=== PATIENT | female | born 1955 | race Caucasian/White ===

== ENCOUNTER → 2019-08-28 13:59 | Outpatient (CLI) | payer OTHER, SELFPAY ==
--- NOTE | ~2019-08-28 | MMUS_ITS ---
EXAMINATION: MM diagnostic juany BI w cb, US breast BI limited HISTORY: Palpable subareolar lump of the right breast and two palpable lumps in the upper outer quadr ant of the left breast. TECHNIQUE: Craniocaudal, mediolateral, and mediolateral oblique 3-D tomosynthesis images of the breas ts were performed and synthetic 2-D images were generated. CAD analysis was submitted and interpreted . High resolution limited bilateral breast ultrasound was performed. COMPARISON: 02/09/2018, 02/08/2017, 02/18/2016, 05/28/2015, 04/12/2015 BREAST PARENCHYMAL COMPOSITION: There are scattered areas of fibroglandular density. FINDINGS: MAMMOGRAPHIC FINDINGS: There is no evidence of suspicious mass, calcification, or architectural distortion in either breast to suggest malignancy. There has been no suspicious interval change. No mammographic correlate is i dentified for the reported palpable lumps of the breasts. ULTRASOUND: A small area of subareolar shadowing in the right breast corresponds to a chronic oil cyst. No suspic ious cystic or solid mass is identified in the region of the reported palpable lumps of either breast . IMPRESSION: 1. No specific mammographic or sonographic correlate is identified for the reported palpable abnormal ity of concern in either breast. 2. Further evaluation at this time should be based on clinical assessment. Continued follow-up physic al examination and annual screening mammography are recommended. BI-RADS Category 2: Benign finding(s). Reviewed, dictated and finalized at location A. LE PRESS OPERATOR IMPRESSION: 1. No specific mammographic or sonographic correlate is identified for the repo rted palpable abnormality of concern in either breast. 2. Further evaluation at this time should be based on clinical assessment. Cont inued follow-up physical examination and annual screening mammography are recom mended. BI-RADS Category 2: Benign finding(s).
== END ==
PROVIDERS: PCP Physician Assistant; Visit Provider Physician Assistant
DX: R92.8 Other abnormal and inconclusive findings on diagnostic imaging of breast (principal)
CPT/HCPCS: 76642; 77062; 77066; G0279

== ENCOUNTER → 2020-03-04 12:37 | Outpatient (CLI) | payer MEDICARE, OTHER, SELFPAY ==
--- NOTE | ~2020-03-04 | US_ITS ---
EXAMINATION: US thyroid DATE: 03/04/2020 12:52 INDICATION: Dysphagia, unspecified. Hypothyroidism. TECHNIQUE: Multiple ultrasound images of the thyroid were obtained. COMPARISON: None. FINDINGS: The right thyroid lobe measures 4.1 x 1.6 x 1.2 cm. The left thyroid lobe measures 3.5 x 1.0 x 1.0 c m. The thyroid demonstrates coarsened echotexture. Vascularity is normal. IMPRESSION: 1. No thyroid nodule. Reviewed, dictated and finalized at location B. IMPRESSION: 1. No thyroid nodule.
== END ==
PROVIDERS: PCP Physician Assistant; Visit Provider Physician Assistant
DX: R13.10 Dysphagia, unspecified (principal)
CPT/HCPCS: 76536

== ENCOUNTER 2020-09-26 17:32 | Emergency (ER) | payer OTHER, MEDICARE, SELFPAY ==
--- NOTE | ~2020-09-26 | CT_ITS ---
EXAMINATION: CT chest abdomen pelvis w con DATE: 09/26/2020 19:26 INDICATION: Chest and lower abdominal pain TECHNIQUE: Transaxial computed tomographic images of the chest, abdomen, and pelvis were obtained aft er the administration of 100 cc of Omnipaque 350 intravenous contrast. The dose-length product (DLP) was 1796.40 mGy-cm. Automated exposure control and iterative reconstruction technique were employed. COMPARISON: None FINDINGS: CHEST CT: The lungs are free of acute opacities. There is no pleural effusion or pneumothorax. No pathologicall y enlarged thoracic lymph nodes are identified. The heart size is normal. There is mild thoracic spon dylosis. ABDOMEN/PELVIS CT: The liver, spleen, pancreas, gallbladder, and adrenal glands are normal. There is a 3.9 cm cyst of th e left kidney. The right kidney is unremarkable. There is calcified atherosclerosis of the aorta and many of the other arteries. A large diverticulum is noted in the third portion of the duodenum. No pa thologically enlarged abdominal or pelvic lymph nodes are identified. There is no free intraperitonea l gas or evidence of bowel obstruction. There is colonic diverticulosis. Inflammatory fat stranding i s seen adjacent to the distal sigmoid colon. There is a small fat-containing umbilical hernia. Modera te lower lumbar spondylosis is noted. IMPRESSION: 1. No traumatic injury identified in the chest, abdomen, or pelvis. 2. Findings consistent with acute, uncomplicated sigmoid diverticulitis. Reviewed, dictated and finalized at location A. ET FORMER
--- NOTE | ~2020-09-26 | CT_ITS ---
EXAMINATION: CT brain wo con INDICATION: Head injury COMPARISON: 12/19/2003 TECHNIQUE: Standard unenhanced head CT. The dose-length product (DLP) was 605.33 mGy-cm. The mA was a djusted according to patient size. Iterative reconstruction technique was employed. FINDINGS: There is no intracranial hemorrhage, acute infarction, or abnormal mass lesion. The ventric les are normal. There is no abnormal mass effect or midline shift. The baker-white matter differentiat ion is normal. The basal cisterns are patent. The orbits are normal. There are a couple calcified sof t tissue densities of the scalp. The paranasal sinuses, mastoids and calvarium are normal. IMPRESSION: 1. No acute intracranial abnormality. Reviewed, dictated and finalized at location A. D ENGINEER
--- NOTE | ~2020-09-26 | CT_ITS ---
EXAMINATION: CT cervical spine wo con DATE: 09/26/2020 19:25 INDICATION: Neck pain TECHNIQUE: Computed tomography (CT) of the cervical spine was performed without intravenous contrast. The dose-length product (DLP) was 462.31 mGy-cm. Automated exposure control and iterative reconstruc tion technique were employed. COMPARISON: None FINDINGS: Bone alignment is normal. There is no fracture. The odontoid is intact. The vertebral body heights are maintained. There is mild loss of intervertebral disc space height from C5-6 through C7-T 1. There is mild multilevel facet and uncovertebral joint osteoarthritis. IMPRESSION: 1. Mild cervical spondylosis without acute findings. Reviewed, dictated and finalized at location A. ORMANCE CONSULTANT
[2020-09-26 17:37] VITALS: BP 133/87; PULSE 82; RESP 17; O2SAT 92
--- NOTE | 2020-09-26 17:51 | PC.NURSE ---
Pt c/o left upper quad pain. no bruising noted on patient abd or chest/. necklace removed and given to pt . pt is alert & oriented x 4.
[2020-09-26] MEDS: MORPHINE SULFATE (*CRX) 2 MG/ML INJ IV PUSH (18:20)
[2020-09-26] MEDS: ONDANSETRON INJ 4 MG/2 ML VIAL (18:20)
[2020-09-26 18:26] VITALS: BP 117/73; PULSE 78; RESP 15; O2SAT 88
--- NOTE | 2020-09-26 18:26 | PC.NURSE ---
Pt placed on 2 L NC O2 due to 88% on room air. States has PMH of COPD, denies home O2 use. O2 sat now 93%. Instructed pt to breathe in through nose and out via mouth.
[2020-09-26 18:34] LABS: Basophils Absolute Auto 0.1 K/mm3 (0.0-0.1); Basophils Percent Auto 0.8 % (0.2-1.2); Eosinophils Absolute Auto 0.2 K/mm3 (0-0.3); Eosinophils Percent Auto 1.7 % (0-4.4); Hemoglobin 12.9 g/dL (12.0-15.0); Immature Granulocyte Absolute 0.05 K/mm3 (0.00-0.031); Immature Granulocyte Percent A 0.4 % (0-0.5); Lymphocytes Absolute Auto 2.74 K/mm3 (0.9-3.2); Lymphocytes Percent Auto 21.4 % (18.3-44.2); Mean Corpuscular HGB Conc 33.1 g/dl (32-36); Mean Corpuscular Hemoglobin 29.5 pg (26-34); Mean Platelet Volume 9.6 fl (7.4-10.4); Monocytes Absolute Auto 0.8 K/mm3 (0.1-0.6); Monocytes Percent Auto 6.1 % (2.6-8.5); Neutrophils Absolute Auto 8.9 K/mm3 (1.3-6.7); Neutrophils Percent Auto 69.6 % (45.5-73.1); Platelet Count Result 373 k/mm3 (150-375); Red Blood Count 4.38 M/mm3 (4.2-5.4); Red Cell Distribution Width 14.1 % (11.5-14.5); White Blood Count 12.8 K/mm3 (4.5-10.0)
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
[2020-09-26 18:46] LABS: Alanine Aminotransferase 18 U/L (4-35); Albumin Level 4.1 g/dL (3.5-5.1); Alkaline Phosphatase 94 U/L (38-126); Anion Gap 9 mmol/L (8-16); Aspartate Amino Transferase 27 U/L (14-36); Bilirubin,Total 0.3 mg/dL (0.2-1.3); Blood Urea Nitrogen 16 mg/dL (7-17); Calcium 8.9 mg/dL (8.4-10.2); Carbon Dioxide 29 mmol/L (22-30); Chloride 102 mmol/L (98-107); Estimated CRCL calculation 143 ml/min; Estimated Glomerular Filt Rate > 60; Glucose 104 mg/dL (65-105); Potassium 3.4 mmol/L (3.4-5.0); Sodium 140 mmol/L (137-145)
[2020-09-26 19:15] LABS: Add Urine Microscopic? YES; Appearance Urine Cloudy (Clear); Bacteria Urine 4+ /hpf; Bilirubin Urine Negative (Negative); Blood Urine Negative (Negative); Color Urine Yellow (Yellow); Glucose Urine UA Negative (Negative); Ketones Urine 2+ mg/dL (Negative); Leukocyte Esterase Ur Negative LEU/UL (Negative); Mucus Urine Rare /lpf; Nitrate Urine Negative (Negative); Protein Urine 1+ mg/dL (Negative); RBC Urine 0-2 /hpf (0-2); Squamous Epithelial Cell Urine Many /hpf (Few); Transitional Epi Cells Urine Rare /hpf (None Seen); Urobilinogen Urine Negative mg/dL (<2.0)
--- NOTE | 2020-09-26 19:21 | ECG_ITS ---
Measurements Intervals [place] Rate: 81 P: 30 CA: 169 QRS: 52 QRSD: 86 T: 51 QT: 298 QTc: 347 Interpretive Statements SINUS RHYTHM NONSPECIFIC T-WAVE ABNORMALITY- DIFFUSE LEADS BASELINE ARTIFACT- I, II, III, AVL, AVF, V4 BORDERLINE ECG Electronically Signed On 09-27-2020 10:56:26 PIECER UP by Alejo Schrader D.O.
[2020-09-26 19:37] VITALS: BP 125/64; PULSE 76; RESP 19; O2SAT 96
[2020-09-26] MEDS: ACETAMINOPHEN 500 MG TABLET 1000 MG PO (20:17)
[2020-09-26 21:33] VITALS: BP 162/83; PULSE 89; RESP 17; O2SAT 94
== END 2020-09-26 21:00 | disposition home or self-care (01) ==
PROVIDERS: Emergency Provider Emergency Medicine; PCP Physician Assistant
DX: S06.0X0A Concussion without loss of consciousness, initial encounter (principal); K57.32 Diverticulitis of large intestine without perforation or abscess without bleeding; I10 Essential (primary) hypertension; E03.9 Hypothyroidism, unspecified; Z87.891 Personal history of nicotine dependence; M47.812 Spondylosis without myelopathy or radiculopathy, cervical region; R94.31 Abnormal electrocardiogram [ECG] [EKG]; V43.52XA Car driver injured in collision with other type car in traffic accident, initial encounter; R10.30 Lower abdominal pain, unspecified
CPT/HCPCS: 36415; 70450; 71260; 72125; 74177; 80053; 81001; 85025; 87077; 87086; 87088; 87186; 93005; 96374; 96375; 99284; A9270; J2270; J2405; Q9967

== ENCOUNTER → 2020-12-04 17:45 | Outpatient (CLI) | payer MEDICARE, SELFPAY ==
--- NOTE | ~2020-12-04 | MR_ITS ---
EXAMINATION: MR thoracic spine wo con DATE: 12/04/2020 18:36 INDICATION: Thoracic back pain. TECHNIQUE: Magnetic resonance imaging (MRI) of the thoracic spine was performed without intravenous c ontrast. Sagittal localizer T1-weighted FSE of the cervical spine was obtained. Thoracic spine sequen woodrow included sagittal T2-weighted FSE, sagittal STIR FSE, sagittal T1-weighted FSE, sagittal T2-weigh amado FS FSE, and axial T2-weighted FSE. COMPARISON: Chest CT 09/26/2020 FINDINGS: There is 6 degrees levocurvature of thoracic spine. Vertebral body heights are normal. Ther e is mildly decreased disc height from T2-T3 through T9-T10. At T11-T12, there is a central extrusio n with mild central canal stenosis. There is multilevel mild facet joint osteoarthritis. On the right , there is mild bilateral foraminal stenosis at T8-T9 and T9-T10. The spinal cord signal intensity is normal. The conus medullaris is at T12-L1. IMPRESSION: 1. Mild thoracic spondylosis. Reviewed, dictated and finalized at location B.
== END ==
PROVIDERS: PCP Physician Assistant; Visit Provider Physician Assistant
DX: S29.9XXA Unspecified injury of thorax, initial encounter (principal); M47.815 Spondylosis without myelopathy or radiculopathy, thoracolumbar region
CPT/HCPCS: 72146